=== PATIENT | female | born 1985 | race Caucasian/White ===

== ENCOUNTER 2024-09-05 04:15 | Emergency (ER) | payer MEDICAID, SELFPAY ==
[2024-09-05 04:15] VITALS: BP 112/83; PULSE 89; RESP 18; TEMP 36.5; O2SAT 97; BMI 27.4
[2024-09-05 04:34] VITALS: BP 112/83; PULSE 94; RESP 16; O2SAT 96
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
--- NOTE | 2024-09-05 05:15 | PC.NURSE ---
pt requested to speak to a nurse. RN went to room to see what pt needed. Pt stated she wanted to see the DR right now. RN explained that the DR was seeing a different pt at the time. Pt said she is tired of sitting in her room wearing a [employer] shirt when she does not work at [employer]. Pt then stated she does not want to deal with veterans. RN asked her if she could explain why she was here and maybe RN could help. Pt asked RN what her name was. RN replied and pt stated that was her grandmothers name. Pt the stated she thinks Bo sent RN in there and she wanted a new nurse now. RN explained she did not know a bo and she stated to get out.
[2024-09-05] MEDS: oxyCODONE-APAP 10-325 mg Tablet 2 TAB PO (06:08)
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
[2024-09-05 06:34] VITALS: BP 112/83; PULSE 92; RESP 16; O2SAT 95
[2024-09-05 09:26] VITALS: BP 146/89; PULSE 80; O2SAT 97
== END 2024-09-05 09:27 | disposition home or self-care (01) ==
PROVIDERS: Emergency Provider Emergency Medicine
DX: S13.4XXA Sprain of ligaments of cervical spine, initial encounter (principal); S06.0XAA Concussion with loss of consciousness status unknown, initial encounter; S50.02XA Contusion of left elbow, initial encounter; S80.812A Abrasion, left lower leg, initial encounter; V86.99XA Unspecified occupant of other special all-terrain or other off-road motor vehicle injured in nontraffic accident, initial encounter
CPT/HCPCS: 70450; 72125; 73030; 73090; 99284